=== PATIENT | female | born 1960 | race Caucasian/White ===

== ENCOUNTER 2018-11-04 08:31 | Day surgery (SDC) | payer OTHER ==
[2018-11-03 15:21] VITALS: BMI 32.3
[2018-11-04] MEDS ORDERED: ceFAZolin SODIUM 1 GM VIAL ONE ×2 (08:55→10:31)
[2018-11-04] MEDS ORDERED: SODIUM CHLORIDE 0.9% P/F 10 ML VIAL IJ ONE ×2 (08:55→10:31)
[2018-11-04] MEDS ORDERED: DEXAMETHASONE SOD PHOSPHATE 4 MG/1 ML VIAL ONE ×2 (08:59→10:33)
[2018-11-04] MEDS ORDERED: PROPOFOL 20 ML ONE ×2 (08:59→10:30)
[2018-11-04] MEDS ORDERED: KETOROLAC TROMETHAMINE 30 MG/1 ML VIAL ONE (08:59)
[2018-11-04] MEDS ORDERED: ONDANSETRON 4 MG/2 ML VIAL ONE ×2 (08:59→10:33)
[2018-11-04] MEDS ORDERED: LIDOCAINE HCL/PF 2% SDV 5ML VIAL ONE (08:59)
--- NOTE | 2018-11-04 09:46 | OP ---
Operative Note - Note: Operative Date: 11/04/18 Pre-Operative Diagnosis: Right elbow avulsion fracture Operation: Right elbow ORIF Post-Operative Diagnosis: Same as Pre-op Surgeon: Zachary Carcamo Gang Hemstitching Machine Operator: Telma Caceres
[2018-11-04] MEDS ORDERED: DEXAMETHASONE SOD PHOSPHATE/PF 10 MG/ML SDV ONE (10:02)
[2018-11-04] MEDS ORDERED: MIDAZOLAM HCL 2 MG/2 ML SINGLE DOSE VIAL ONE (10:03)
[2018-11-04] MEDS ORDERED: ROPIVACAINE HCL 0.5% 30ML VIAL ONE (10:03)
[2018-11-04] MEDS ORDERED: oxyCODONE HCL 5 MG TABLET PO PRN ×2 (12:19)
[2018-11-04] MEDS ORDERED: ONDANSETRON 4 MG/2 ML VIAL IVPUSH PRN (12:19)
[2018-11-04] MEDS ORDERED: LACTATED RINGERS SOLUTION 1,000 ML IV SCH (12:30)
--- NOTE | 2018-11-04 13:07 | OP ---
DATE OF OPERATION: 11/04/2018 PREOPERATIVE DIAGNOSIS: Right olecranon fracture. POSTOPERATIVE DIAGNOSIS: Right olecranon fracture. PROCEDURE: Right olecranon open reduction and internal fixation. SURGEON: Zachary Carcamo MD CLASSICS PROFESSOR: RENAE Aquino, whose skillful assistance was necessary for the safe and timely performance of this procedure. Ms. Caceres was able to provide limb positioning, retraction, assist in fracture reduction, as well as insertion of suture fixation hardware and bony fixation hardware. IMPLANTS: Synthes 4.0 cannulated screw, 4 x 44 mm x1, as well as Arthrex 4 x 5 mm Corkscrew x1. TOURNIQUET TIME: One hour. INDICATIONS: This is a pleasant woman who suffered a trip and fall at work. She was found to have a displaced olecranon avulsion fracture. Treatment options including nonoperative versus operative management were reviewed. Operative management was highly suggested given that she was would lose permanent triceps function if this was not treated surgically. We discussed risks of surgery including bleeding, infection, neurovascular injury, need for further surgery, postoperative pain and stiffness, re-rupture, nonunion, malunion, hardware failure, or cutout. We discussed medical risks such as heart attack, stroke, DVT, PE, and . I addressed the use of perioperative antibiotic and DVT prophylaxis. I addressed all the patient's questions and concerns. We did review the rehabilitation as well. She voiced understanding and elected to proceed. DESCRIPTION OF PROCEDURE: Patient was brought to the operating room where general anesthetic was administered. The patient had previously been given a block in the preoperative holding area. She was placed into a slight lateral decubitus position on a husain bag with care taken to pad all the bony prominences and maintain the neck in neutral position. The right upper extremity was then prepped and draped in the usual sterile fashion. The patient was given a preoperative dose of antibiotics, and the usual timeout procedure was performed. The incision was now planned out over the olecranon using a curvilinear incision to avoid going directly posterior over the olecranon. It curved laterally. Incision was now carried down through skin, through subcutaneous tissue. Electrocautery was used to maintain hemostasis. Blunt spreading was used to expose the fracture site which was now examined. Here, a small amount of comminution was noted. The fracture site was located more medially on the olecranon. On the lateral side, the triceps had avulsed in soft tissue fashion off of this side. The site was now debrided down to healthy bone. Decision was made to use a 4.0 cannulated screw to repair the fracture fragment. First, the K-wire was placed. Fracture reduction was examined and was satisfactory. This was then overdrilled, and a 44-mm screw was inserted, compressing the fracture back down. To secure the soft tissue component, the Corkscrew anchor was then punched and then tapped. The anchor was then inserted, gaining excellent purchase. One set of sutures was passed through the soft tissue of the distal triceps laterally in a ripstop locking suture. The second suture was passed more proximal to the fracture fragment to provide a tension band type construct. The sutures were then tied, firmly securing down the triceps. This passed through a range of motion, and the repair was found to be stable. Fluoroscopy was used to confirm hardware placement. It should be noted that the fluoroscope was used while the punch was in for the anchor to ensure no penetration of the joint surface with this as well. It should be noted that the tourniquet was inflated just after incision as the bone was noted to be oozing from its marrow and let down after 1 hour after wound closure. The subcutaneous tissue was now closed with 3-0 Vicryl. The wound was closed using 3-0 running nylon. Sterile dressings were placed. The patient was placed into a posterior splint. She was extubated, transferred to recovery room in stable condition. Kimberly [id number]
[2018-11-04 13:53] VITALS: TEMP 98.3
[2018-11-04] MEDS ORDERED: ACETAMINOPHEN 1000 MG/100 ML VIAL (NON FORMULARY) IVPB ONE (14:00)
[2018-11-04 14:47] VITALS: BP 150/78; PULSE 88
== END 2018-11-04 14:30 | disposition home or self-care (01) ==
LOC: FASU 08:31
PROVIDERS: ATTEND Orthopaedic Surgery Sports Medicine
PROC: 0PSK04Z Reposition Right Ulna with Internal Fixation Device, Open Approach (ICD-10-PCS; principal; 2018-11-04 10:52)
DX: S52.021A Displaced fracture of olecranon process without intraarticular extension of right ulna, initial encounter for closed fracture (principal); X58.XXXA Exposure to other specified factors, initial encounter; Y93.9 Activity, unspecified; Y92.9 Unspecified place or not applicable
CPT/HCPCS: 73070-TC-RT-FY; 94760